=== PATIENT | male | born 1945 | race Caucasian/White ===

== ENCOUNTER 2016-05-17 11:30 | Outpatient (CLI) | payer MEDICARE, OTHER | END 2016-05-17 11:31 | disposition home or self-care (01) | DX: J44.9 Chronic obstructive pulmonary disease, unspecified (principal); R49.0 Dysphonia; J30.2 Other seasonal allergic rhinitis; R05 Cough ==

== ENCOUNTER 2016-06-07 10:46 | Outpatient (CLI) | payer MEDICARE, OTHER | END 2016-06-07 10:47 | disposition home or self-care (01) | DX: G25.81 Restless legs syndrome (principal); Z12.5 Encounter for screening for malignant neoplasm of prostate; R53.83 Other fatigue; R49.0 Dysphonia | CPT/HCPCS: 36415; 85025; G0103 ==

== ENCOUNTER 2016-07-05 14:26 | Outpatient (CLI) | payer MEDICARE, OTHER | END 2016-07-05 14:27 | disposition home or self-care (01) | DX: D64.9 Anemia, unspecified (principal) ==

== ENCOUNTER 2017-05-10 08:00 | Outpatient (CLI) | payer MEDICARE, OTHER | END 2017-05-10 23:59 | disposition home or self-care (01) | LOC: LAB.R 08:00 | PROVIDERS: ATTEND Family Medicine | DX: Z53.9 Procedure and treatment not carried out, unspecified reason (principal) | CPT/HCPCS: 81599 ==

== ENCOUNTER 2017-05-16 16:10 | Outpatient (CLI) | payer MEDICARE, OTHER ==
--- NOTE | 2017-05-17 17:38 | XRAY Report ---
DATE OF SERVICE: 05/16/2017 TWO VIEW CHEST: 05/16/2017 CLINICAL INDICATION: Hoarseness, chronic cough. COMPARISON: 05/17/2016 Frontal and lateral views of the chest demonstrate a normal cardiac silhouette. Hyperinflation is stable, compatible with COPD. No focal consolidation, effusion, or pneumothorax is present. IMPRESSION: Stable COPD. No evidence of acute cardiopulmonary disease. TD: 05/17/2017 18:38
== END 2017-05-16 16:11 | disposition home or self-care (01) ==
LOC: DI.S 16:10
PROVIDERS: ATTEND Family Medicine
DX: J44.9 Chronic obstructive pulmonary disease, unspecified (principal)
CPT/HCPCS: 71046

== ENCOUNTER 2017-05-23 08:00 | Outpatient (CLI) | payer MEDICARE, OTHER | END 2017-05-23 23:59 | disposition home or self-care (01) | LOC: LAB.R 08:00 | PROVIDERS: ATTEND Family Medicine | DX: D64.9 Anemia, unspecified (principal); R53.83 Other fatigue; R05 Cough | CPT/HCPCS: 81599; 87177; 87209 ==

== ENCOUNTER 2018-08-02 08:00 | Outpatient (CLI) | payer MEDICARE, OTHER ==
[2018-08-02 17:57] LABS: BASOPHILS % (AUTO) 0.8 %; EOSINOPHILS # (AUTO) 0.1 10^3/uL (0.0-0.7); EOSINOPHILS % (AUTO) 3.8 %; HGB - HEMOGLOBIN 14.5 g/dL (14.0-18.0); LYMPHOCYTES # (AUTO) 1.3 10^3/uL (1.5-3.5); LYMPHOCYTES % (AUTO) 34.1 %; MEAN CORPUSCULAR HEMOGLOBIN 32.9 pg (27.0-31.0); MEAN CORPUSCULAR HGB CONC 32.2 g/dL (32.0-36.0); MEAN CORPUSCULAR VOLUME 102.2 fL (80.0-94.0); MONOCYTES # (AUTO) 0.4 10^3/uL (0.0-1.0); NEUTROPHILS % (AUTO) 51.3 %; PLT - PLATELET COUNT 168 10^3/uL (130-450); RED CELL DISTRIBUTION WIDTH 13.2 % (12.0-15.0); WHITE BLOOD COUNT 3.9 x10^3/uL (4.8-10.8)
[2018-08-02 18:15] LABS: ALBUMIN 3.7 g/dL (3.2-5.5); ALBUMIN/GLOBULIN RATIO 1.6 (1.0-2.2); CALCIUM 8.7 mg/dL (8.5-10.3); CREATININE 0.9 mg/dL (0.6-1.2)
[2018-08-02 18:34] LABS: FERRITIN 43.9 ng/mL (23.9-336.2)
== END 2018-08-02 23:59 | disposition home or self-care (01) ==
LOC: LAB.F 08:00
PROVIDERS: ATTEND Physician Assistant Medical
DX: R63.4 Abnormal weight loss (principal); G25.81 Restless legs syndrome; Z12.5 Encounter for screening for malignant neoplasm of prostate; G47.00 Insomnia, unspecified; D64.9 Anemia, unspecified
CPT/HCPCS: 36415; 82728; G0103; 80053; 84153; 84443; 85025

== ENCOUNTER 2018-09-20 15:25 | Outpatient (CLI) | payer MEDICARE, OTHER ==
--- NOTE | 2018-09-21 15:27 | XRAY Report ---
Reason: NECK AND BACK PAIN Procedure Date: 09/20/2018 Accession Number: [id number] / [id number] Procedure: XR - Cervical Spine Complete CPT Code: FULL RESULT: EXAM: CERVICAL SPINE RADIOGRAPHY EXAM DATE: 09/20/2018 03:44 PM. CLINICAL HISTORY: Neck and back pain. COMPARISONS: None. TECHNIQUE: 5 views. FINDINGS: Alignment: Normal. No spondylolisthesis or scoliosis. Bones: The cervical vertebral bodies and posterior elements are well-visualized from the skull base through C7-T1. No fractures or bone lesions. Disks: Mild to moderate disk space narrowing is noted at C4-C5 and C5-C6 with a minimal marginal osteophyte. Facets: No degenerative disease. Neural Foramina: The neural foramina have bony patency bilaterally. Soft Tissues: Normal. No prevertebral soft tissue swelling. The visualized lung apices are clear. IMPRESSION: Mid cervical degenerative disk space narrowing. No significant foraminal narrowing. No appreciable fracture. RADIA
== END 2018-09-20 15:26 | disposition home or self-care (01) ==
LOC: DI 15:25
PROVIDERS: ATTEND Physician Assistant Medical
DX: M48.02 Spinal stenosis, cervical region (principal)
CPT/HCPCS: 72050

== ENCOUNTER 2023-06-18 08:00 | Outpatient (CLI) | payer MEDICARE, OTHER | END 2023-06-18 08:01 | disposition home or self-care (01) | LOC: LAB.S 08:00 | PROVIDERS: ATTEND Emergency Medicine | DX: R05.1 Acute cough (principal) ==

== ENCOUNTER 2023-06-26 08:00 | Outpatient (CLI) | payer MEDICARE, OTHER ==
--- NOTE | 2023-06-27 12:25 | XRAY Report ---
PROCEDURE: Chest 2V INDICATIONS: PRODUCTIVE COUGH TECHNIQUE: 2 views of the chest were acquired. COMPARISON: None. FINDINGS: Surgical changes and devices: None. Lungs and pleura: Lungs are hyperexpanded with chronic interstitial change. Mild appearance of super imposed localized focal opacity in the left lower, right upper and right lower lobes are present comp ared to prior exam. Mediastinum: Mediastinal contours appear normal. Heart size is normal. Bones and chest wall: No suspicious bony lesions. Overlying soft tissues appear unremarkable. IMPRESSION: Suspicion of acute on chronic pulmonary disease possibly representing pneumonia. Recommend short inte rval imaging follow-up after appropriate therapy to document resolution. Reviewed by: Shonna Ghosh MD on 06/27/2023 12:23 PM PST Approved by: Shonna Ghosh MD on 06/27/2023 12:23 PM [facility] Station ID: [id number]
== END 2023-06-26 23:59 | disposition home or self-care (01) ==
LOC: DI.S 08:00
PROVIDERS: ATTEND Emergency Medicine
DX: R91.8 Other nonspecific abnormal finding of lung field (principal)

== ENCOUNTER 2023-07-16 07:00 | Outpatient (CLI) | payer MEDICARE, OTHER ==
--- NOTE | 2023-07-17 08:50 | XRAY Report ---
PROCEDURE: Chest 2V INDICATIONS: SHORTNESS OF BREATH TECHNIQUE: 2 views of the chest were acquired. COMPARISON: 06/26/2023 FINDINGS: Surgical changes and devices: None. Lungs and pleura: Hyperexpanded lungs. Probable senescent lung markings and peribronchial thickening . Superimposed opacities, particularly in the right upper lung and right lower lung, or slightly decr eased. No pleural effusions. Mediastinum: Normal heart size Bones and chest wall: Degenerative changes. IMPRESSION: Decreased right upper and right lower lung opacities, but not resolved. Background of suspected chron ic lung disease with possible emphysema bronchitis. Consider future imaging surveillance to assess fo r resolution. Reviewed by: Aldo Pinto MD on 07/17/2023 8:49 AM PDT Approved by: Aldo Pinto MD on 07/17/2023 8:49 AM PDT Station ID: [id number]
== END 2023-07-16 23:59 | disposition home or self-care (01) ==
LOC: DI.S 07:00
PROVIDERS: ATTEND Emergency Medicine
DX: R91.8 Other nonspecific abnormal finding of lung field (principal)

== ENCOUNTER 2023-07-27 07:00 | Outpatient (CLI) | payer MEDICARE, OTHER ==
--- NOTE | 2023-07-27 16:17 | XRAY Report ---
PROCEDURE: Chest 2V INDICATIONS: FOCAL PNEUMONIA TECHNIQUE: 2 views of the chest were acquired. COMPARISON: 07/16/2023 and 06/26/2023. FINDINGS: Surgical changes and devices: None. Lungs and pleura: No pleural effusions or pneumothorax. Emphysematous changes in bilateral lung fiel ds are again seen. Persistent small airspace opacity in right upper lung field not significantly ontiveros ged from most recent study. No definite right lower lobe airspace opacity is seen. Mediastinum: Mediastinal contours appear normal. Heart size is normal. Bones and chest wall: No suspicious bony lesions. Overlying soft tissues appear unremarkable. IMPRESSION: Finding is concerning for stable right upper lobe infiltrate and nearly resolved right lower lobe inf iltrate. Background advanced COPD. No pleural effusion or pneumothorax. Reviewed by: Bharath Elam MD on 07/27/2023 4:15 PM PDT Approved by: Bharath Elam MD on 07/27/2023 4:15 PM PDT Station ID: [id number]
== END 2023-07-27 23:59 | disposition home or self-care (01) ==
LOC: DI.S 07:00
PROVIDERS: ATTEND Registered Nurse
DX: J18.8 Other pneumonia, unspecified organism (principal); J44.0 Chronic obstructive pulmonary disease with (acute) lower respiratory infection

== ENCOUNTER 2023-08-07 10:01 | Outpatient (CLI) | payer MEDICARE, OTHER ==
[2023-08-07 14:48] LABS: BASOPHILS # (AUTO) 0.1 10^3/uL (0.0-0.1); BASOPHILS % (AUTO) 0.7 %; EOSINOPHILS # (AUTO) 0.5 10^3/uL (0.0-0.7); EOSINOPHILS % (AUTO) 7.2 %; HGB - HEMOGLOBIN 13.2 g/dL (14.0-18.0); LYMPHOCYTES # (AUTO) 1.1 10^3/uL (1.5-3.5); LYMPHOCYTES % (AUTO) 16.9 %; MEAN CORPUSCULAR HEMOGLOBIN 32.4 pg (27.0-31.0); MEAN CORPUSCULAR HGB CONC 32.2 g/dL (32.0-36.0); MEAN CORPUSCULAR VOLUME 100.7 fL (80.0-94.0); MEAN PLATELET VOLUME 9.2 fL (7.4-11.4); MONOCYTES # (AUTO) 0.5 10^3/uL (0.0-1.0); MONOCYTES % (AUTO) 7.8 %; NEUTROPHILS # (AUTO) 4.5 10^3/uL (1.5-6.6); PLT - PLATELET COUNT 352 10^3/uL (130-450); RED BLOOD COUNT 4.07 10^6/uL (4.70-6.10); RED CELL DISTRIBUTION WIDTH 13.3 % (12.0-15.0); WHITE BLOOD COUNT 6.7 x10^3/uL (4.8-10.8)
[2023-08-07 15:25] LABS: FERRITIN 347.6 ng/mL (23.9-336.2)
[2023-08-07 16:01] LABS: % IRON SATURATION 27 % (20-50); ALBUMIN/GLOBULIN RATIO 0.9 (1.0-2.2); ALKALINE PHOSPHATASE 54 IU/L (42-121); ALT ALANINE AMINOTRANSFERASE 23 IU/L (10-60); AST ASPARTATE AMINOTRANSFERASE 25 IU/L (10-42); BILIRUBIN,TOTAL 0.4 mg/dL (0.2-1.0); BUN - BLOOD UREA NITROGEN 16 mg/dL (6-20); CALCIUM 9.1 mg/dL (8.5-10.3); CARBON DIOXIDE - CO2 30 mmol/L (21-32); CHLORIDE 101 mmol/L (101-111); CHOL/HDL RATIO 3.9 (<5.0); CHOLESTEROL 140 mg/dL; CREATININE 0.8 mg/dL (0.6-1.3); GFR - MDRD 94 (>89); GLUCOSE 90 mg/dL (74-104); HDL CHOLESTEROL 36 mg/dL; IRON 43 ug/dL (50-212); LDL CHOLESTEROL,CALCULATED 88 mg/dL; LDL/HDL RATIO 2.4 (<3.6); POTASSIUM 4.1 mmol/L (3.5-4.5); SODIUM 136 mmol/L (135-145); TOTAL IRON BINDING CAPACITY 161 ug/dL (250-450); TOTAL PROTEIN 6.5 g/dL (6.4-8.9); TRANSFERRIN 115 mg/dL (203-362); TRIGLYCERIDES 79 mg/dL (48-352); VLDL CHOLESTEROL 16 mg/dL
== END 2023-08-07 10:02 | disposition home or self-care (01) ==
LOC: LAB.S 10:01
PROVIDERS: ATTEND Registered Nurse
DX: D64.9 Anemia, unspecified (principal); Z12.5 Encounter for screening for malignant neoplasm of prostate; Z13.228 Encounter for screening for other metabolic disorders; Z13.220 Encounter for screening for lipoid disorders; Z13.29 Encounter for screening for other suspected endocrine disorder; Z13.0 Encounter for screening for diseases of the blood and blood-forming organs and certain disorders involving the immune mechanism
CPT/HCPCS: 36415; 80053; 80061; 82728; 83540; 84443; 84466; 85025; G0103; 83721; 84153

== ENCOUNTER 2023-08-10 15:58 | Outpatient (CLI) | payer MEDICARE, OTHER ==
--- NOTE | 2023-08-10 17:18 | XRAY Report ---
PROCEDURE: Chest 2V INDICATIONS: FOCAL PNEUMONIA TECHNIQUE: 2 views of the chest were acquired. COMPARISON: Chest x-ray, 07/27/2023. FINDINGS: Surgical changes and devices: None. Lungs and pleura: There is airspace infiltrate in lingula and left lower lobe, increased compared to the last exam. Lungs are hyperinflated. There are areas of lucencies compatible with emphysematous bu llae. Bilateral increased interstitial markings. Question trace pleural effusions versus pleural thic kening bilaterally. No pneumothorax. Mediastinum: Mediastinal contours appear normal. Heart size is normal. Bones and chest wall: No suspicious bony lesions. Overlying soft tissues appear unremarkable. IMPRESSION: 1. Suspect acute pneumonia in lingula and left lower lobe superimposed on diffuse chronic interstitia l lung disease.. 2. Question trace pleural effusions or pleural thickening bilaterally. 3. Emphysema. Reviewed by: Romero Devine MD on 08/10/2023 5:17 PM PDT Approved by: Romero Devine MD on 08/10/2023 5:17 PM PDT Station ID: [id number]
== END 2023-08-10 15:59 | disposition home or self-care (01) ==
LOC: DI.S 15:58
PROVIDERS: ATTEND Registered Nurse
DX: J18.9 Pneumonia, unspecified organism (principal); J43.9 Emphysema, unspecified

== ENCOUNTER 2023-08-16 11:40 | Outpatient (CLI) | payer MEDICARE, OTHER ==
[2023-08-16] MEDS ORDERED: iohexoL-300 100 ML VIAL ONE (11:45)
[2023-08-16] MEDS: iohexoL-300 100 ML VIAL IVP ONE (13:20)
--- NOTE | 2023-08-16 14:38 | CT Report ---
PROCEDURE: Chest W INDICATIONS: FOCAL PNA CONTRAST: OMNI 300 100ML TECHNIQUE: After the administration of intravenous contrast, a CT scan of the chest was performed. Images were recorded and evaluated at appropriate window settings. Reformats: axial MIP of the chest, coronal and sagittal. For radiation dose reduction, the following was used: automated exposure control, adjustme nt of mA and/or kV according to patient size. COMPARISON: 08/10/2023, 07/27/2023, 09/20/2018, 06/26/2023 FINDINGS: Image quality: Diagnostic. Chest wall and lower neck: No thyroid nodule which requires sonographic follow up. No axillary or sup raclavicular adenopathy by size. Lungs and pleura: Peripheral reticulation with associated groundglass and mild bronchiectasis, in a m id to lower lung zone distribution. Additional round foci of groundglass and consolidation in the rig ht lower lobe (series 4, image 74). Mediastinum: Heart size is normal. No pericardial effusion. No large vessel abnormality. No mediastin al adenopathy by size criteria. Bones: No aggressive osseous abnormality. Upper Abdomen: Unremarkable. IMPRESSION: Peripheral reticulation with associated groundglass and mild bronchiectasis, in a mid to lower lung z one distribution. Additional round foci of groundglass and consolidation in the right lower lobe (ser ies 4, image 74). Differential includes interstitial lung disease, organizing pneumonia, drug reactio n. Recommend pulmonology referral. Recommend 3 month follow-up with high resolution chest CT to evalu ate for changes and to ensure resolution of the round regions of consolidation. Reviewed by: Sharath Chu MD on 08/16/2023 2:37 PM PDT Approved by: Sharath Chu MD on 08/16/2023 2:37 PM PDT Station ID: [id number]
== END 2023-08-16 11:41 | disposition home or self-care (01) ==
LOC: DI 11:40
PROVIDERS: ATTEND Registered Nurse
DX: J18.8 Other pneumonia, unspecified organism (principal); J47.0 Bronchiectasis with acute lower respiratory infection
CPT/HCPCS: 71260; Q9967